=== PATIENT | male | born 1965 | race Caucasian/White ===

== ENCOUNTER → 2023-12-13 08:48 | Outpatient (REF) | payer OTHER, SELFPAY | LOC: MRI 3T 08:48 | PROVIDERS: ATTENDING PHYSICIAN Surgery; FAMILY PHYSICIAN Internal Medicine | DX: R97.20 Elevated prostate specific antigen [PSA] (principal) | CPT/HCPCS: 72197; A9575 ==

== ENCOUNTER → 2024-06-25 17:05 | Outpatient (REF) | payer OTHER, SELFPAY | LOC: RAD 17:05 | PROVIDERS: ATTENDING PHYSICIAN Internal Medicine | DX: E03.9 Hypothyroidism, unspecified (principal); E04.1 Nontoxic single thyroid nodule | CPT/HCPCS: 76536 ==

== ENCOUNTER → 2024-12-25 18:37 | Outpatient (REF) | payer BC, SELFPAY | LOC: MRI 3T 18:37 | PROVIDERS: ATTENDING PHYSICIAN Surgery; FAMILY PHYSICIAN Internal Medicine | DX: R97.20 Elevated prostate specific antigen [PSA] (principal) | CPT/HCPCS: 72197; A9575 ==